=== PATIENT | female | born 1995 | race Hispanic/Latino ===

== ENCOUNTER 2022-05-11 19:20 | Emergency (ER) | payer OTHER ==
--- OUTSIDE RECORDS SUMMARY | 2022-05-11 19:23 | XMS REPORT | Continuity of Care Document ---
:1995 Author Organization [facility] t Address [address] [place] [address] Care Team Providers Name Role Phone PCP, PATIENT DOES NOT HAVE A Primary Care Physician Unavaila ble TRITSCHLER Attending Clinician Unavailable TRITSCHLER Attending Clinician Unavailable FISH Attending Clinician Unavailable Payers Payer Name Policy Type Policy Number Effective Date Expiration Date Beltran GABRIEL [id number] 2019 00:00:00 Problems Condition Condition Condition Status Onset Resolution Last Treating Co mments Source Name Details Category Date Date Treatment Clinician Date Vaginal Vaginal Disease Active Univers bleeding bleeding 6-15 [place] [facility] Missed Missed Disease Active Univers periods periods 6-08 ity of 00:00: [address] Disease Active Uni vers examinatio examinatio -08 it y of n [place] test[place] positive 00 Med[place] l result result Branch Allergies, Adverse Reactions, Alerts Allergy Allergy Status Severity Reaction(s) Onset Inactive Treating Comm ents Source Name Type Date Date Clinician NO KNOWN Drug Active Univers ALLERGIE Class ity of S [facility] Social History Social Habit Start Date Stop Date Quantity Comments Source ASSERTION [facility] Alcohol intake 2022-05-10 2022-05-10 Ex-drinker [facility] 00:00:00 00:00:00 (finding) [facility] Tobacco use and 2022-05-02 2022-05-02 Never used Universit y of exposure 00:00:00 00:00:00 [facility] Exposure to 2022-04-21 2022-05-01 Not sure [facility]-CoV-2 00:00:00 11:46:00 [facility] (event) Branch Sex Ass[birth year] Universit y of 00:00:00 00:00:00 [facility] Branch Smoking Status Start Date Stop Date Source Never smoker [facility] Medications Ordered Filled Start Stop Current Ordering Indication Dosage Frequency Signature Comments Components Source Medication Medication Date Date Medication? Clinician (SIG) Name Name PNV 67-iron Yes [id number] 1{capsu Take 1 Univers ps-folate 6-07 le} capsule by ity of no.1-dha 00:00: mouth [place] (VITAFOL 00 daily. Medical ULTRA) 29 Branch mg iron- 1 mg-200 mg Cap PNV 67-iron Yes [id number] 1{capsu Take 1 Univers ps-folate 6-07 le} capsule by ity of no.1-dha 00:00: mouth [place] (VITAFOL 00 daily. Medical ULTRA) 29 Branch mg iron- 1 mg-200 mg Cap PNV 67-iron Yes [id number] 1{capsu Take 1 Univers ps-folate 6-07 le} capsule by ity of no.1-dha 00:00: mouth [place] (VITAFOL 00 daily. Medical ULTRA) 29 Branch mg iron- 1 mg-200 mg Cap PNV 67-iron Yes [id number] 1{capsu Take 1 Univers ps-folate 6-07 le} capsule by ity of no.1-dha 00:00: mouth [place] (VITAFOL 00 daily. Medical ULTRA) 29 Branch mg iron- 1 mg-200 mg Cap Vital Signs Vital Name Observation Time Observation Value Comments Source Systolic blood 2022-05-10 20:29:00 123 mm[Hg] Univer sity of pressure [facility] Diastolic blood 2022-05-10 20:29:00 73 mm[Hg] [facility] Heart rate 2022-05-10 20:29:00 63 /min [facility] Body temperature 2022-05-10 20:29:[address] Body height 2022-05-10 20:29:00 160 cm [facility] Body weight 2022-05-10 20:29:00 58.968 [facility] 2022-05-10 20:29:00 23.03 kg/m2 [facility] Systolic blood 2022-05-02 14:20:00 120 mm[Hg] Univer sity of pressure [facility] Diastolic blood 2022-05-02 14:20:00 73 mm[Hg] Unive rsity of [facility] Heart rate 2022-05-02 14:20:00 83 /min [facility] Body temperature 2022-05-02 14:20:00 36.89 Renetta [facility] Respiratory rate 2022-05-02 14:20:00 18 /min [facility] Body height 2022-05-02 14:20:00 160 cm [facility] Body weight 2022-05-02 14:20:00 58.06 kg [facility] BMI 2022-05-02 14:20:00 22.67 kg/m2 [facility] Oxygen saturation in 2022-05-02 14:20:00 99 /min [facility] Arterial blood by [facility] Pulse oximetry Branch Procedures Procedure Date / Time Performed Performing Clinician [facility] e POCT URINALYSIS W/O 2022-05-10 00:00:00 Castillo Randall [facility] SPECIFIC GRAVITY [facility] POCT URINALYSIS 2022-05-02 14:29:00 Castillo Randall [facility] POCT TEST 2022-05-02 14:28:00 Castillo Randall [facility] Encounters Start End Encounter Admission Attending Care Care Encounter Source Date/Time Date/Time Type Type Clinicians Facility Department ID 2022-05-24 2022-05-24 Outpatient R CASTILLO RANDALL [facility] B [id number] Univers 15:00:00 15:00:00 CASTILLO RANDALL [id number] [facility] 2022-05-24 2022-05-24 Outpatient R CASTILLO RANDALL [facility] B [id number] Univers 15:00:00 15:00:00 CASTILLO RANDALL sa[facility] 2022-05-16 2022-05-16 Outpatient R BETHANY AYALA [facility] [id number] Univers 10:00:00 10:00:[id number] [facility] 2022-05-16 2022-05-16 Outpatient R BETHANY AYALA [facility] [id number] Univers 10:00:00 10:00:[address] [facility] 2022-05-15 2022-05-15 Outpatient R JEREMIAHBRANDONGABRIELECASTILLO HEARN [facility] B [id number] Univers 00:00:00 00:00:00 CASTILLO RANDALL [address] [facility] 2022-05-12 2022-05-12 Outpatient R VIOLETCASTILLO HEARN [facility] B [id number] Univers 16:00:00 16:00:00 CASTILLO RANDALL [id number] [facility] 2022-05-10 2022-05-10 Outpatient R VIOLETGLENDA HEARNCAT [facility] B [id number] Univers 16:00:00 16:00:00 CSATILLO RANDALL [address] [facility] 2022-05-10 2022-05-10 Routine Prakash [facility] [id number] Univers 16:00:00 16:00:00 Castillo GOMEZ [id number] i ty of Visit WOMEN'S 4.2.7.2.686 [facility] [id number] [address] 2022-05-10 2022-05-10 Outpatient R PRAKASHGLENDACAT [facility] B [id number] Univers 16:00:00 15:43:[address] [facility] 2022-05-10 2022-05-10 Telephone Violetomega [facility] [id number] Univers 00:00:00 00:00:00 Castillo GOMEZ [id number] it y of WOMEN'S 4.2.7.2.686 [facility] [id number] [address] 2022-05-05 2022-05-05 Telephone Prakash INZACHARY RINALDI [id number] Univers 00:00:00 00:00:00 Castillo GOMEZ [id number] it y of WOMEN'S 4.2.7.2.686 [facility] [id number] [address] 2022-05-02 2022-05-02 Outpatient R CASTILLO RANDALL [facility] B [id number] [facility] 08:30:00 09:23:04 J[address] [facility] 2022-05-02 2022-05-02 Initial [facility] [id number] Univers 08:30:00 09:23:04 Castillo GOMEZ [id number] i ty of Visit WOMEN'S 4.2.7.2.686 [facility] [id number] [address] Results Test Description Test Time Test Comments Results Result Comments Source POCT URINALYSIS W/O SPECIFIC GRAVITY 2022-05-10 20:29:00 Test Item Value Reference Range Interpretation Comme nts POCT PH U (test code = 3254) 6 mg/dl 5-8 POCT U LEUK EST (test code = 3263) Negative Negative - Negative POCT U NIT (test code = 3262) negative Negative - Negative POCT U PROT (test code = 3259) Negative Negative - Negative POCT U GLU (test code = 3256) Normal Negative - Negative POCT U KETONE (test code = 3258) Negative Negative - Negative POCT U BLD (test code = 3257) Trace Negative - Negative [facility] SPECIFIC [id number] 14:30:00 Test Item Value Reference Range Interpretation Comments POCT U SP GRAV (test code = Negative 1.005-1.025 3255) POCT PH U (test code = 3254) 6 mg/dl 5-8 POCT U LEUK EST (test code = Negative Negative - Negative 3263) POCT U NIT (test code = 3262) 1+ Negative - Negative POCT U PROT (test code = 3259) Negative Negative - Negative POCT U GLU (test code = 3256) Negative Negative - Negative POCT U KETONE (test code = 3258) Negative Negative - Negative POCT U UROBILI (test code = Negative 0.2-1 3260) POCT U BILI (test code = 3261) Negative Negative - Negative POCT U BLD (test code = 3257) Trace Negative - Negative POCT U COLOR (test code = 3266) Yellow POCT U APPEAR (test code = 3267) clear [facility] [id number] 14:29:00 Test Item Value Reference Range Interpretation Comments POCT PREG (test code = 1605) Positive On board controls acceptable with C Yes Line (test code = 3574) POCT PREG LOT # (test code = 3575) POCT PREG TEST DATE (test code = 3576) [facility]
[2022-05-11 21:00] LABS: Urine Blood 2+ (Negative); Urine Glucose Negative (Negative); Urine Protein Negative (Negative); Urine Specific Gravity 1.015 (1.005-1.030)
[2022-05-11 21:04] LABS: Absolute Lymphocytes (CBC) 2.4 K/uL (0.7-4.9); Hematocrit 43.6 % (36.0-45.0); Lymphocytes % 31.5 % (15.3-44.8); MPV 8.9 fL (7.6-11.3); RBC Red Blood Cell Count 4.78 M/uL (3.86-4.86)
[2022-05-11 21:22] LABS: Urine Specific Gravity/Preg 1.015 (1.005-1.030)
[2022-05-11 21:35] LABS: Potassium 3.7 mmol/L (3.5-5.1)
--- NOTE | 2022-05-11 21:53 | RAD REPORT ---
EXAM DESCRIPTION: US - Transvaginal OB - 05/11/2022 9:32 pm CLINICAL HISTORY: VAGINAL BLEEDING COMPARISON: No comparisons FINDINGS: Single IUP identified. The crown-rump length measures 8 millimeters which is consistent wi th 6 week 5 day. heart tones are present. The heart tones measure 132 bpm. Second echogen ic structure adjacent to the pole which is possibly an abnormal yolk sac. The right ovary is volume of 2.3 cc. The left ovary is volume of 10.2 cc. Corpus luteum in the right ovary. Bilateral ovarian blood flow. No free fluid. . IMPRESSION: Single IUP with positive heart tones measuring 6 week 5 day with MAVIS of 12/30/2022 . Possible abnormal yolk sac. Recommend short term follow-up ultrasound in 1-2 weeks to re-assess.
--- NOTE | 2022-05-11 23:09 | ER ---
Nurse's Notes [facility] Name: Tamela Gastelum Age: 26 yrs Sex: Female : 1995 Arrival Date: 05/11/2022 Time: 19:23 Bed 20 Private MD: Diagnosis: Threatened Presentation: 05/11 20:17 Chief complaint: Patient states: About 7 weeks , has been having some brown lp1 discharge but discharge has become more red in color now; Reports mild pelvic cramping x 2 weeks. Coronavirus screen: At this time, the client does not indicate any symptoms associated with coronavirus-19. Ebola Screen: No symptoms or risks identified at this time. Risk Assessment: Do you want to hurt yourself or someone else? Patient reports no desire to harm self or others. Onset of symptoms was May 11, 2022. 20:17 Method Of Arrival: Ambulatory lp1 20:17 Acuity: SHREYA 3 lp1 20:20 Initial Sepsis Screen: Does the patient meet any 2 criteria? No. Patient's initial lp1 sepsis screen is negative. Does the patient have a suspected source of infection? No. Patient's initial sepsis screen is negative. Triage Assessment: 21:18 General: Behavior is calm, cooperative, appropriate for age. 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 - Social history:: Smoking status: Patient denies any tobacco usage or history of. Screenin:18 Abuse screen: Denies threats or abuse. Nutritional screening: No deficits noted. vc1 Tuberculosis screening: No symptoms or risk factors identified. Fall Risk None identified. Assessment: 21:15 General: Appears in no apparent distress. Pain: Denies pain. Neuro: Level of vc1 Consciousness is awake, alert, obeys commands, Oriented to person, place, time, situation, Appropriate for age. Cardiovascular: Patient's skin is warm and dry. Respiratory: Airway is patent Respiratory effort is even, unlabored, Respiratory pattern is regular, symmetrical. GI: No deficits noted. : Urine is clear, Reports vaginal bleeding that is bright red, spotty, heavier today than it was yesterday Denies discharge, pain. EENT: No deficits noted. Derm: No deficits noted. 23:00 Reassessment: Patient and/or family updated on plan of care and expected duration. Pain vc1 level reassessed. Patient is alert, oriented x 3, equal unlabored respirations, skin warm/dry/pink. 23:42 Reassessment: No changes from previously documented assessment. Patient and/or family vc1 updated on plan of care and expected duration. Pain level reassessed. Patient is alert, oriented x 3, equal unlabored respirations, skin warm/dry/pink. Vital Signs: 20:20 BP 130 / 77; Pulse 78; Resp 16; Temp 98.5(O); Pulse Ox 100% on R/A; Weight 58.97 kg lp1 (R); Height 5 ft. 2 in. (157.48 cm); Pain 2/10; 22:59 BP 123 / 58; Pulse 77; Resp 16; Pulse Ox 100% ; vc1 23:42 BP 119 / 65; Pulse 69; Resp 16; Pulse Ox 98% on R/A; vc1 20:20 Body Mass Index 23.78 (58.97 kg, 157.48 cm) lp1 ED Course: 19:23 Patient arrived in ED. bp1 20:04 Ajay Edge PA is PHCP. jmm 20:04 Sami Sal MD is Attending Physician. jmm 20:19 Triage completed. lp1 20:20 Arm band placed on right wrist. lp1 21:15 Apryl Barrow, GILDA is Primary Nurse. vc1 21:18 Call light in reach. Pulse ox on. NIBP on. vc1 21:33 Transvaginal OB In Process Unspecified. EDMS 23:42 No provider procedures requiring assistance completed. IV discontinued, intact, vc1 bleeding controlled, No redness/swelling at site. Pressure dressing applied. Administered Medications: No medications were administered Medication: 23:43 VIS not applicable for this client. vc1 Outcome: 23:09 Discharge ordered by . tatyana 23:43 Discharged to home ambulatory, with significant other. vc1 23:43 Condition: good 23:43 Discharge instructions given to patient, Instructed on discharge instructions, follow up and referral plans. medication usage, Demonstrated understanding of instructions, follow-up care, medications. 23:43 Patient left the ED. vc1 Signatures: Dispatcher [employer] EDMS Ajay Edge PA PA jmm Pena, Laura, RN RN lp1 Whit Inman Vanessa, RN RN vc1 Corrections: (The following items were deleted from the chart) 20:22 20:20 Temp 98.5F Oral; 58.97 kg Reported; Height 5 ft. 2 in.; BMI: 23.7; Pain 2/10; lp1 lp1
--- NOTE | 2022-05-11 23:09 | EDPHYS ---
Physician Documentation [facility] Name: Tamela Gastelum Age: 26 yrs Sex: Female : 1995 Arrival Date: 05/11/2022 Time: 19:23 Bed 20 Private MD: ED Physician Sami Sal HPI: 05/11 20:19 This 26 yrs old Female presents to ER via Ambulatory with complaints of jmm Vaginal Bleeding. 20:19 The patient presents with vaginal bleeding that is. Onset: The symptoms/episode jmm began/occurred gradually. Modifying factors: The symptoms are alleviated by nothing, the symptoms are aggravated by nothing. This is a 26 year old female with a history of preeclampsia that presents to the ED with complaints of vaginal bleeding beginning yesterday, increasing today. Saw director of outpatient services yesterday but did not receive an us. Denies weakness or dizziness. . 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 - Social history:: Smoking status: Patient denies any tobacco usage or history of. ROS: 20:19 Constitutional: Negative for fever, chills, and weight loss, Cardiovascular: Negative jmm for chest pain, palpitations, and edema, Respiratory: Negative for shortness of breath, cough, wheezing, and pleuritic chest pain. 20:19 : Positive for vaginal bleeding. 20:19 All other systems are negative. Exam: 20:19 Constitutional: This is a well developed, well nourished patient who is awake, alert, jmm and in no acute distress. Head/Face: atraumatic. Eyes: EOMI, no conjunctival erythema appreciated ENT: Moist Mucus Membranes Neck: Trachea midline, Supple Chest/axilla: Normal chest wall appearance and motion. Cardiovascular: Regular rate and rhythm. No edema appreciated Respiratory: Normal respirations, no respiratory distress appreciated Abdomen/GI: Non distended, soft Back: Normal ROM Skin: General appearance color normal MS/ Extremity: Moves all extremities, no obvious deformities appreciated, no edema noted to the lower extremities Neuro: Awake and alert Psych: Behavior is normal, Mood is normal, Patient is cooperative and pleasant Vital Signs: 20:20 BP 130 / 77; Pulse 78; Resp 16; Temp 98.5(O); Pulse Ox 100% on R/A; Weight 58.97 kg lp1 (R); Height 5 ft. 2 in. (157.48 cm); Pain 2/10; 22:59 BP 123 / 58; Pulse 77; Resp 16; Pulse Ox 100% ; vc1 23:42 BP 119 / 65; Pulse 69; Resp 16; Pulse Ox 98% on R/A; vc1 20:20 Body Mass Index 23.78 (58.97 kg, 157.48 cm) lp1 MDM: 20:19 Patient medically screened. [facility] 23:08 Data reviewed: vital signs, nurses notes. Counseling: I had a detailed discussion with tatyana the patient and/or guardian regarding: the historical points, exam findings, and any diagnostic results supporting the discharge/admit diagnosis, lab results, radiology results, the need for outpatient follow up, to return to the emergency department if symptoms worsen or persist or if there are any questions or concerns that arise at home. 05/11 20:19 Order name: Abo/rh Typing; Complete Time: 21:33 [facility] 05/11 20:19 Order name: Basic Metabolic Panel; Complete Time: 21:39 [facility] 05/11 20:19 Order name: CBC with Diff; Complete Time: 21:20 [facility] 05/11 20:19 Order name: Quantitative Hcg; Complete Time: 21:39 [facility] 05/11 21:00 Order name: Urine --Ancillary (enter results); Complete Time: 21:29 [facility] 05/11 21:01 Order name: Urine Dipstick-Ancillary; Complete Time: 21:07 [facility] 05/11 20:19 Order name: IV Saline Lock; Complete Time: 20:54 [facility] 05/11 20:19 Order name: Labs collected and sent; Complete Time: 20:54 [facility] 05/11 20:19 Order name: NPO; Complete Time: 20:54 [facility] 06/16 20:19 Order name: Urine Dipstick-Ancillary (obtain specimen); Complete Time: 20:59 [facility] 05/11 21:15 Order name: Transvaginal OB; Complete Time: 22:06 EDMS Administered Medications: No medications were administered Disposition: 05/12 08:39 Co-signature as Attending Physician, Sami Sal MD I agree with the assessment and katelynn plan of care. Disposition Summary: 05/11/22 23:09 Discharge Ordered Location: Home [facility] Condition: Stable [facility] Diagnosis - Threatened [facility] Followup: [facility] - With: Private Physician - When: 2 - 3 days - Reason: Recheck today's complaints, Continuance of care, Re-evaluation by your physician Discharge Instructions: - Discharge Summary Sheet [facility] - Threatened Miscarriage [facility] Forms: - Medication Reconciliation Form [facility] - Thank You Letter [facility] - Antibiotic Education [facility] - Prescription Opioid Use [facility] Signatures: Dispatcher [employer] EDSami Deal MD MD cha Mickail, Joel, PA PA jmm Pena, Laura, RN RN lp1 Corrections: (The following items were deleted from the chart) 05/11 21:15 20:20 1st Trimest Single 1st Fetus+US.RAD.BRZ ordered. [facility] EDMS
[2022-05-12 00:32] VITALS: TEMP 98.5
[2022-05-12 00:35] VITALS: BP 119/65; O2SAT 98
== END 2022-05-11 23:43 | disposition home or self-care (01) ==
LOC: ER 19:20
DX: O20.0 Threatened abortion (principal); Z3A.01 Less than 8 weeks gestation of pregnancy
CPT/HCPCS: 36415; 76817; 80048; 81003; 81025; 84702; 85025; 86900; 86901; 99283